=== PATIENT | female | born 1945 | race Two or more races ===

== ENCOUNTER 2018-09-05 11:13 | Emergency (ER) | payer MEDICARE, OTHER ==
[2018-09-05 13:54] VITALS: BP 180/89
[2018-09-05] MEDS ORDERED: ACETAMINOPHEN 325 MG TABLET PO STA (14:16)
--- NOTE | 2018-09-05 14:16 | ED Physician Documentation ---
History of Present Illness - Stated complaint Stated Complaint: FELL AND HURT LEFT SIDE - Chief complaint Chief Complaint: Ext Problem - History obtained from History obtained from: Patient, Family - History of Present Illness Timing: Yesterday Pain level max: 5 Pain level now: 5 - Additonal information Additional information: 72-year-old female presents to the emergency department after a trip and fall yesterday. Landing on her left hip and buttocks. Did not have much pain yesterday but increased pain today. It is better when she is up and moving and worse when she stops and sits for a period of time. Has not taken anything for pain. Did not strike her head. No neck or back pain. She is not on ant icoagulants. Review of Systems Constitutional: denies: Fever, Chills Respiratory: denies: Cough GI: denies: Vomiting, Diarrhea Skin: denies: Rash Musculoskeletal: denies: Neck pain, Back pain Neurologic: denies: Seizure, Confused, Head injury, LOC PD PAST MEDICAL HISTORY - Past Medical History Cardiovascular: None Respiratory: None Neuro: None Endocrine/Autoimmune: None GI: None WIRELESS COMMUNICATIONS ENGINEER: None : None HEENT: None Psych: None Musculoskeletal: None - Past Surgical History Past Surgical History: No /WIRELESS COMMUNICATIONS ENGINEER: section - Allergies Allergies/Adverse Reactions: Allergies Allergy/AdvReac Type Severity Reaction Status Date / Time No Known Drug Allergies Allergy Verified 09/05/18 11:36 - Social History Does the pt smoke?: No Smoking Status: Never smoker PD ED PE NORMAL - Vitals Vital signs reviewed: Yes - General General: Alert and oriented X 3, No acute distress, Well developed/nourished - HEENT HEENT: PERRL, Moist mucous membranes - Neck Neck: Supple, no meningeal sign, No bony TTP - Cardiac Cardiac: RRR, Strong equal pulses - Respiratory Respiratory: No respiratory distress, Clear bilaterally - Abdomen Abdomen: Soft, Non tender, Non distended - Back Back: No spinal TTP (No step-off or deformity) - Derm Derm: Warm and dry - Extremities Extremities: No deformity, Normal ROM s pain, Other (No bony tenderness on examination of the left upper extremity or left lower extremity. No rib tenderness. Does have tenderness over the left gluteal area. No visible bruising.) - Neuro Neuro: Alert and oriented X 3, cloth edge singer 2-12 intact, No motor deficit, No sensory deficit, Normal speech - Psych Psych: Normal mood, Normal affect Results - Vitals Vitals: Vital Signs - 24 hr 09/05/18 09/05/18 09/05/18 11:34 13:29 13:50 Temperature 36.8 C 36.8 C 36.1 C L Heart Rate 73 66 69 Respiratory 18 20 16 Rate Blood Pressure 178/110 H 159/89 H 180/89 H O2 Saturation 97 98 98 Oxygen O2 Source Room air PD MEDICAL DECISION MAKING - ED course Complexity details: considered differential, d/w patient, d/w family ED course: 72-year-old female status post a ground-level fall yesterday. Appears to have a contusion of the left buttock. She is well-appearing, nontoxic. Afebrile. Not on blood thinners. Normal gait. We will continue supportive care and follow-up with her doctor. Patient and family counseled regarding signs and symptoms for which I believe and urgent re-evaluation would be necessary. Patient with good understanding of and agreement to plan and is comfortable going home at this time This document was made in part using voice recognition software. While efforts are made to proofread this document, sound alike and grammatical errors may occur. Departure - Departure Disposition: 01 Home, Self Care Clinical Impression: Contusion of soft tissue Fall Qualifiers: Encounter type: initial encounter Qualified Code(s): W19.XXXA - Unspecified fall, initial encounter Condition: Good Instructions: ED Contusion Soft Tissue Follow-Up: Adria Leone MD [Primary Care Provider] - As Needed Comments: You can use Motrin or Tylenol as needed for pain. Return if you worsen. Forms: Activity restrictions
== END 2018-09-05 14:28 | disposition home or self-care (01) ==
LOC: ED 11:13
DX: S30.0XXA Contusion of lower back and pelvis, initial encounter (principal); W01.0XXA Fall on same level from slipping, tripping and stumbling without subsequent striking against object, initial encounter
CPT/HCPCS: 99282; 99283